=== PATIENT | male | born 1970 | race Caucasian/White ===

== ENCOUNTER → 2025-06-03 12:57 | Outpatient (BNVA) | payer SELFPAY | PROVIDERS: PCP Electrodiagnostic Medicine; Visit Provider Specialist | DX: S82.025A Nondisplaced longitudinal fracture of left patella, initial encounter for closed fracture (principal); W19.XXXA Unspecified fall, initial encounter | CPT/HCPCS: 73560; 73565 ==

== ENCOUNTER 2025-06-03 15:15 | Outpatient (CLI) | payer SELFPAY | END 2025-06-03 15:16 | disposition home or self-care (01) | LOC: SPT 06-04 09:41 | PROVIDERS: PCP Electrodiagnostic Medicine; Visit Provider Specialist | DX: Z46.89 Encounter for fitting and adjustment of other specified devices (principal); M25.562 Pain in left knee | CPT/HCPCS: L1812 ==